=== PATIENT | female | born 2000 | race Caucasian/White ===

== ENCOUNTER 2022-09-12 10:47 | Outpatient (CLI) | payer BC | END 2022-09-12 10:48 | disposition home or self-care (01) | LOC: CSHCT 10:47 | PROVIDERS: ATTEND Nurse Practitioner Family | DX: D33.3 Benign neoplasm of cranial nerves (principal); G91.8 Other hydrocephalus; Z98.890 Other specified postprocedural states | CPT/HCPCS: 70450 ==